=== PATIENT | female | born 1960 | race Caucasian/White ===

== ENCOUNTER 2017-02-06 17:45 | Outpatient (CLI) | payer OTHER ==
[~2017-02-06 17:45] MED LIST: ISOVUE-370 76%-LOCM 1 ML ONE
--- NOTE | 2017-02-06 22:19 | CT ---
CT CHEST WITH IV CONTRAST CT ABDOMEN WITH ORAL AND IV CONTRAST CT PELVIS WITH ORAL AND IV CONTRAST 02/06/17 HISTORY: Weight loss. FINDINGS: No evidence of mediastinal, hilar, axillary mass or lymphadenopathy seen. No pleural or pericardial effusions are identified. The visualized portions of the thyroid gland are normal. No pulmonary nodu les, lung bases, focal areas of consolidation or pneumothoraces are seen. There is mild asymmetry of the adrenal glands, left more prominent than the right. The liver, spleen , pancreas, and kidneys are normal. The patient is post cholecystectomy and hysterectomy. No free air, free fluid or lymphadenopathy is noted in the abdomen or pelvis. The small bowel loops are not abnormally dilated. A normal appearing appendix is present. There are vascular calcification s without evidence of aneurysmal dilatation of the thoracoabdominal aorta. There are mild degenerati ve changes in the thoracolumbar spine. IMPRESSION: No significant abnormalities are seen in the chest, abdomen or pelvis. POS: [facility]
== END 2017-02-06 17:46 | disposition home or self-care (01) ==
LOC: CT 17:45
PROVIDERS: ATTEND Neurological Surgery
DX: R63.4 Abnormal weight loss (principal)
CPT/HCPCS: 71260; 74177

== ENCOUNTER 2017-04-17 06:23 | Observation (INO) | payer OTHER ==
[2017-04-16 12:20] VITALS: BMI 26.1
[2017-04-17] MEDS ORDERED: Sodium Chloride 0.9% 10 ML ONE (06:37)
[2017-04-17] MEDS ORDERED: CEFAZOLIN/Water 2 GM/20 ML SYRINGE ONE (06:49)
[2017-04-17 07:05] LABS: Hemoglobin 15.4 g/dL (12.0-16.0); Mean Corpuscular HGB CONC 33.2 g/dL (32.0-36.0); Mean Corpuscular Hemoglobin 33.1 pg (27.0-31.0); Mean Corpuscular Volume 99.6 fl (81.0-99.0); Mean Platelet Volume 7.6 fL (7.4-10.4); Platelet Count 216 thou/uL (130-400); RBC Distribution Width 12.4 % (11.5-14.5); Red Blood Cell (RBC) Count 4.65 mill/uL (4.20-5.40); White Blood Cell (WBC) Count 7.3 thou/uL (4.8-10.8)
[2017-04-17 07:17] LABS: Anion Gap 9 mmol/L (10-20); BUN (Urea Nitrogen) 16 mg/dL (9.8-20.1); Calc. Creatinine Clearance 95 mL/min (70-130); Calcium 9.9 mg/dL (7.8-10.44); Carbon Dioxide 32 mmol/L (22-29); Chloride 104 mmol/L (98-107); Estimated GFR-MDRD 77; Glucose 107 mg/dL (70-105); Potassium 4.6 mmol/L (3.5-5.1); Sodium 140 mmol/L (136-145)
[2017-04-17] MEDS ORDERED: Fentanyl 100 MCG/2 ML VIAL ONE ×2 (07:30→08:52)
[2017-04-17] MEDS ORDERED: Ondansetron HCl/PF 4 MG/2 ML Vial ONE ×3 (09:18→16:25)
[2017-04-17] MEDS ORDERED: HYDROmorphone 2 MG/ML VIAL SLOW IVP PRN (09:21)
[2017-04-17] MEDS ORDERED: Promethazine HCl 25 MG/ML VIAL SLOW IVP PRN (09:21)
[2017-04-17] MEDS ORDERED: Meperidine HCl/PF 25 MG/ML VIAL SLOW IVP PRN (09:21)
[2017-04-17] MEDS ORDERED: Promethazine HCl 25 MG/ML VIAL IM/IV PRN (09:21)
[2017-04-17] MEDS ORDERED: Ondansetron HCl/PF 4 MG/2 ML Vial IVP PRN ×2 (09:21→10:45)
[2017-04-17] MEDS ORDERED: Promethazine HCl 25 MG/ML VIAL ONE (09:39)
[2017-04-17] MEDS ORDERED: Meperidine HCl/PF 25 MG/ML VIAL ONE (09:39)
[2017-04-17] MEDS ORDERED: Morphine 4 MG/ML VIAL ONE (10:14)
[2017-04-17] MEDS ORDERED: Cyanocobalamin (Vitamin B-12) 1,000 MCG TAB PO SCH (10:30)
[2017-04-17] MEDS ORDERED: Folic Acid 1 MG TAB PO SCH (10:30)
[2017-04-17] MEDS ORDERED: Mometasone 100 MCG HFA INHALER INH PRN (10:36)
[2017-04-17] MEDS ORDERED: Milk Of Magnesia 30 ML UDCUP PO PRN (10:45)
[2017-04-17] MEDS ORDERED: Acetaminophen 650 MG Suppository PR PRN (10:45)
[2017-04-17] MEDS ORDERED: HYDROcodone/Acetaminophen 10/325 mg Tablet PO PRN ×2 (10:45)
[2017-04-17] MEDS ORDERED: diphenhydrAMINE 25 MG CAP PO PRN (10:45)
[2017-04-17] MEDS ORDERED: Promethazine HCl 12.5 MG SUPP PR PRN (10:45)
[2017-04-17] MEDS ORDERED: Promethazine HCl 25 MG/ML VIAL IM PRN (10:45)
[2017-04-17] MEDS ORDERED: diphenhydrAMINE 50 MG/ML VIAL IVP PRN (10:45)
[2017-04-17] MEDS ORDERED: Mag-Al 1200 mg/1200 mg/30 ML UDCUP PO PRN (10:45)
[2017-04-17] MEDS ORDERED: tiZANidine HCl 4 MG TAB PO PRN (10:45)
[2017-04-17] MEDS ORDERED: Acetaminophen 325 MG TAB PO PRN (10:45)
[2017-04-17] MEDS ORDERED: Morphine 4 MG/ML Carpuject SLOW IVP PRN (10:45)
--- NOTE | 2017-04-17 11:20 | OP ---
DATE OF PROCEDURE: 04/17/2017 SURGEON: Wily Corey M.D. FITTING SUPERVISOR: Issa Major PROCEDURE: Anterior cervical diskectomy C4 through C7. Interbody arthrodesis, intravertebral biomec hanical device, local morselized autograft, demineralized bone matrix, anterior titanium instrumentat ion C4-C7. PROCEDURE IN DETAIL: The patient was brought into the operating room and intubated. She was positio tyler supine with the head in modest extension on a gel-filled donut. Incision was made in the right p recervical area and dissecting medial to the sternocleidomastoid muscle. We identified the anterior cervical spine and our level was confirmed by x-ray. We debrided anterior osteophytes, placed distra ction across the disc spaces, and using the operating microscope and microdissection techniques, comp letely decompressed the intravertebral discs down to the level of the dura at each affected level. T he bony endplates were then decorticated for the purpose of arthrodesis and appropriately sized intra vertebral biomechanical PEEK devices were brought into the field, filled with demineralized bone matr ix and local morselized autograft, and tapped into place securely at C4-5, C5-6, and C6-7. Next, an anterior plate was brought in the field and secured to C4, C5, C6, and C7 using two 14 mm screws at e ach level. The wound was then extensively irrigated, immaculate hemostasis was secured, and the woun d was closed in anatomic layers over a drain.
--- NOTE | 2017-04-17 12:34 | EKG ---
Test Reason : PREOP Blood Pressure : / mmHG Vent. Rate : 079 BPM Atrial Rate : 079 BPM P-R Int : 198 ms QRS Dur : 082 ms QT Int : 378 ms P-R-T Axes : 073 051 071 degrees QTc Int : 433 ms Normal sinus rhythm Normal ECG No previous ECGs available Confirmed by DR. Nella LICEA ([id number]) on 04/17/2017 12:34:29 PM Referred By: JESSEE Confirmed By:DR. Nella LICEA
[2017-04-17] MEDS ORDERED: ALPRAZolam 0.25 MG TAB PO PRN (12:57)
[2017-04-17] MEDS: Sodium Chloride 0.9% 1,000 ML IV SCH (14:05)
[2017-04-17] MEDS: Magnesium Oxide 400 MG TAB PO SCH ×2 (14:53→19:55)
[2017-04-17] MEDS: CEFAZOLIN/Water 2 GM/20 ML SYRINGE SLOW IVP SCH (14:53)
[2017-04-17] MEDS ORDERED: ALPRAZolam 0.5 MG TAB PO SCH (15:00)
[2017-04-17] MEDS ORDERED: ADDERALL 5 MG TAB PO SCH (15:00)
--- NOTE | 2017-04-17 15:14 | PDOC.PN ---
- Subjective Encounter Start Date: 04/17/17 Encounter Start Time: 14:00 Patient seen and examined. Consult for med mngt. Somnolent after the procedure. Family at bedside - Objective MAR Reviewed: Yes Vital Signs & Weight: Vital Signs (12 hours) Temp Pulse Resp BP Pulse Ox 04/17/17 13:03 98.6 F 99 18 04/17/17 11:50 98.6 F 99 18 111/67 92 L Weight Weight 162 lb Result Diagrams: 04/17/17 06:48 04/17/17 06:48 Radiology Reviewed by me: Yes (CT chest/abd earlier this yr - negative) Phys Exam - Physical Examination Constitutional: NAD Respiratory: no wheezing, no rhonchi Cardiovascular: RRR, no rub Gastrointestinal: soft, non-tender, positive bowel sounds Musculoskeletal: no edema Neurological: non-focal, moves all 4 limbs Dx/Plan - Plan DVT proph w/SCDs IMPRESSION: 1. Anxiety/Depression 2. DANILO - not on CPAP 3. HLD 4. Chronic Insomnia 5. Hypothyroidism 6. Tobacco dependence 7. ADHD/CKD 2 PLAN: * Change Xanax to PRN due to somnolence * Cont Effexor * Cont pulse ox for now * Sleep study as outpt * cont Armor thyroid * Counselled to quit smoking * Thank you for this consultation. Will follow. Review of Systems - Review of Systems Respiratory: negative: Cough, Dry, Shortness of Breath, Hemoptysis, SOB with Excertion, Pleuritic Pain, Sputum, Wheezing Cardiovascular: negative: chest pain, palpitations, orthopnea, paroxysmal nocturnal dyspnea, edema, light headedness - Medications/Allergies Allergies/Adverse Reactions: Allergies Allergy/AdvReac Type Severity Reaction Status Date / Time No Known Allergies Allergy Verified 04/16/17 12:21 Medications: Current Medications Acetaminophen (Tylenol) 650 mg PO Q4H PRN PRN Reason: Headache/Fever or Pain(1-3) Acetaminophen (Tylenol) 650 mg MD Q4H PRN PRN Reason: Headache/Fever or Pain(1-3) Hydrocodone Bitart/Acetaminophen ([place] 10/325) 1 tab PO Q4H PRN PRN Reason: PAIN (1-3) Hydrocodone Bitart/Acetaminophen ([place] 10/325) 2 tab PO Q4H PRN PRN Reason: PAIN (4-6) Acidophilus (Floranex) 1 tab PO DAILY [facility] Al Hydroxide/Mg Hydroxide (Maalox) 30 ml PO Q4H PRN PRN Reason: Heartburn or Indigestion Alprazolam (Xanax) 0.25 mg PO BIDPRN PRN PRN Reason: Anxiety Atorvastatin Calcium (Lipitor) 10 mg PO HS [facility] Calcium Polycarbophil (Fibercon) 625 mg PO HS [facility] Cefazolin Sodium (Ancef) 2 gm SLOW IVP 0700,1500,2300 [facility] Stop: 04/17/17 23:01 Last Admin: 04/17/17 14:53 Dose: 2 gm Cholecalciferol (Vitamin D3) 10,000 units PO HS [facility] Coenzyme Q10 (Coenzyme Q10) 200 mg PO HS [facility] Diphenhydramine HCl (Benadryl) 25 mg PO Q6H PRN PRN Reason: Itching Diphenhydramine HCl (Benadryl) 25 mg IVP Q6H PRN PRN Reason: Itching Sodium Chloride (Normal Saline 0.9%) 1,000 mls @ 75 mls/hr IV .[id number] [facility] Last Admin: 04/17/17 14:05 Dose: 1,000 mls Magnesium Hydroxide (Milk Of Magnesium) 30 ml PO Q12H PRN PRN Reason: Constipation Magnesium Oxide (Magnesium Oxide) 400 mg PO TID [facility] Last Admin: 04/17/17 14:53 Dose: 400 mg Mometasone Furoate (Asmanex Hfa 100 Mcg) 2 puff INH BID-RT PRN PRN Reason: SOB/WHEEZING Morphine Sulfate (Morphine) 2 mg SLOW IVP Q1H PRN PRN Reason: Moderate Breakthrough Pain Morphine Sulfate (Morphine) 4 mg SLOW IVP Q1H PRN PRN Reason: Severe Breakthrough Pain Ondansetron HCl (Zofran) 4 mg IVP Q24H PRN PRN Reason: Nausea/Vomiting Promethazine HCl (Phenergan) 12.5 mg IM Q4H PRN PRN Reason: Nausea/Vomiting Promethazine HCl (Phenergan) 12.5 mg PO Q4H PRN PRN Reason: Nausea/Vomiting Promethazine HCl (Phenergan Suppository) 12.5 mg MD Q4H PRN PRN Reason: Nausea/Vomiting Sodium Chloride (Flush - Normal Saline) 10 ml IVF Q12HR [facility] Sodium Chloride (Flush - Normal Saline) 10 ml IVF PRN PRN PRN Reason: Saline Flush Thyroid ([place] Thyroid) 60 mg PO Q2D [facility] Thyroid ([place] Thyroid) 90 mg PO Q2D [facility] Tizanidine HCl (Zanaflex) 4 mg PO Q6H PRN PRN Reason: MUSCLE SPASM Venlafaxine HCl (Effexor Xr) 150 mg PO DAILY [facility]
[2017-04-17] MEDS ORDERED: PHENYLEPHRINE-NS 100 MCG/ML 10 ML SYRINGE ONE (16:25)
[2017-04-17] MEDS ORDERED: Dexamethasone 20 MG/5 ML VIAL ONE (16:25)
[2017-04-17] MEDS ORDERED: Lidocaine 1% PF 5 ML VIAL ONE (16:25)
[2017-04-17] MEDS ORDERED: Propofol 200 MG/20 ML VIAL ONE (16:25)
[2017-04-17] MEDS ORDERED: ePHEDrine/0.9% NaCl/PF SYRINGE 50 mg/10 ml ONE (16:25)
[2017-04-17] MEDS ORDERED: Glycopyrrolate 0.2 MG/ML 5 ML SYRINGE ONE (16:25)
[2017-04-17] MEDS ORDERED: TUMERIC 500 MG PO SCH (21:00)
[2017-04-17] MEDS ORDERED: Atorvastatin Calcium 10 MG TAB PO SCH (21:00)
[2017-04-17] MEDS ORDERED: Calcium Polycarbophil 625 MG TAB PO SCH (21:00)
[2017-04-17] MEDS ORDERED: Ubidecarenone 50 MG CAP PO SCH (21:00)
[2017-04-18] MEDS: CEFAZOLIN/Water 2 GM/20 ML SYRINGE SLOW IVP SCH (00:11)
[2017-04-18] MEDS: Sodium Chloride 0.9% 1,000 ML IV SCH (00:14)
[2017-04-18] MEDS: Magnesium Oxide 400 MG TAB PO SCH (08:14)
[2017-04-18] MEDS ORDERED: Lactinex Tablet PO SCH (09:00)
[2017-04-18] MEDS ORDERED: Venlafaxine HCl XR 150 MG CAP PO SCH (09:00)
[2017-04-18 09:17] VITALS: BP 144/87; TEMP 97.8
--- NOTE | 2017-04-18 22:48 | PDOC.PN ---
- Subjective Encounter Start Date: 04/18/17 Encounter Start Time: 09:50 Patient seen and examined. No new complaints. No overnight events. Pain controlled. - Objective MAR Reviewed: Yes Vital Signs & Weight: Weight Weight 162 lb I&O: 04/17/17 04/18/17 04/19/17 06:59 06:59 06:59 Intake Total 1340 Output Total 60 20 Balance 1280 -20 Result Diagrams: 04/17/17 06:48 04/17/17 06:48 Phys Exam - Physical Examination Constitutional: NAD Neurological: moves all 4 limbs Psychiatric: A&O x 3 Dx/Plan - Plan DVT proph w/SCDs IMPRESSION: 1. Anxiety/Depression 2. DANILO - not on CPAP 3. HLD 4. Chronic Insomnia 5. Hypothyroidism 6. Tobacco dependence 7. ADHD/CKD 2 PLAN: * Cont current meds as below * Will follow Review of Systems - Review of Systems Respiratory: negative: Cough, Dry, Shortness of Breath, Hemoptysis, SOB with Excertion, Pleuritic Pain, Sputum, Wheezing Cardiovascular: negative: chest pain, palpitations, orthopnea, paroxysmal nocturnal dyspnea, edema, light headedness - Medications/Allergies Allergies/Adverse Reactions: Allergies Allergy/AdvReac Type Severity Reaction Status Date / Time No Known Allergies Allergy Verified 04/16/17 12:21
[2017-04-19] MEDS ORDERED: Thyroid,Pork 90 MG TAB PO SCH (09:00)
== END 2017-04-18 10:05 | disposition home or self-care (01) ==
LOC: SDC 06:23 → SURG B 06:46
PROVIDERS: ADMIT Neurological Surgery; ATTEND Neurological Surgery
PROC: 0RG20A0 Fusion of 2 or more Cervical Vertebral Joints with Interbody Fusion Device, Anterior Approach, Anterior Column, Open Approach (ICD-10-PCS; principal; 2017-04-18)
DX: M54.12 Radiculopathy, cervical region (principal); Z90.49 Acquired absence of other specified parts of digestive tract; Z90.710 Acquired absence of both cervix and uterus; Z98.890 Other specified postprocedural states
CPT/HCPCS: 36415; 76001; 80048; 85027; 93005; 93010; 94760; 96361; 96374; 96376; A4216; C1713; G0378; G8978-GP-CH; G8979-GP-CH; G8980-GP-CH; J0131; J1100; J2001; J2175; J2270; J2405; J2550; J2704; J3010; J3490

== ENCOUNTER 2017-05-01 15:31 | Outpatient (CLI) | payer OTHER ==
--- NOTE | 2017-05-01 16:57 | RAD ---
THREE VIEWS CERVICAL SPINE: Date: 05-01-17 Comparison: None. History: Osteoarthritis, evaluate cervical spine following surgery. FINDINGS: Anterior discectomy and fusion hardware is present at C4-5, C5-6, and C6-7. Open mouth odontoid view demonstrates a normal appearing dens and C1-2 articulation. There is disc space narrowing with degene rative endplate change at C4-5, C5-6, and C6-7, most prominent at C5-6. There is posterior osteophyte formation at C4-5 and C5-6. Frontal imaging demonstrates significant bilateral facet and uncal vertebral osteophyte formation, le ft greater than right, most prominent at C4-5 and C5-6. IMPRESSION: Post-operative and degenerative changes of the cervical spine as described above. POS: [facility]
== END 2017-05-01 15:32 | disposition home or self-care (01) ==
LOC: TBSIIMAG 15:31
PROVIDERS: ATTEND Neurological Surgery
DX: M47.22 Other spondylosis with radiculopathy, cervical region (principal); Z98.890 Other specified postprocedural states
CPT/HCPCS: 72040

== ENCOUNTER 2017-07-16 10:51 | Outpatient (CLI) | payer OTHER ==
--- NOTE | 2017-07-16 13:09 | RAD ---
THREE VIEWS CERVICAL SPINE: Date: 07-16-17 Comparison: 05-01-17 History: Osteoarthritis of spine, prior cervical spine surgery. FINDINGS: Anterior discectomy and fusion hardware is seen at C4-5, C5-6, and C6-7 levels. Post-operative hardwa re appears stable when compared to the prior exam. There is posterior osteophyte formation at C4-5, C 5-6, and C6-7. There is no evidence for hardware failure. Open mouth odontoid view demonstrates a nor mal appearing dens and C1-2 articulation. There is bilateral facet and uncal vertebral osteophyte for mation within the mid and inferior aspect of the cervical spine, stable. IMPRESSION: Stable post-operative and degenerative changes as described above. POS: [facility]
== END 2017-07-16 10:52 | disposition home or self-care (01) ==
LOC: TBSIIMAG 10:51
PROVIDERS: ATTEND Physician Assistant
DX: M47.22 Other spondylosis with radiculopathy, cervical region (principal); Z98.890 Other specified postprocedural states
CPT/HCPCS: 72040